=== PATIENT | female | born 2000 | race Caucasian/White ===

== ENCOUNTER 2023-09-29 12:14 | Outpatient (REF) | payer MEDICAID, SELFPAY ==
--- NOTE | ~2023-09-29 | US_ITS ---
EXAMINATION: US OBSTETRICAL ULTRASOUND CLINICAL INFORMATION: Known distal age. COMPARISON: None LMP: Unknown. Gestational age by maternal dates is unknown. Estimated date of delivery by maternal dates is unknown. TECHNIQUE: Routine transabdominal imaging of pelvis is performed. FINDINGS: There is a single intrauterine gestational sac with visible yolk sac, embryo/fetus, and cardiac activity. There is no significant subchorionic hemorrhage or hematoma. HR: 179 beats per minute. CRL (crown rump length): 3.1 cm (10 weeks 0 days +/- 4 days). CELSO (estimated date of delivery): 04/26/2024 +/- 4 days. MATERNAL ADNEXA: The right maternal ovary measures 1.7 x 2.6 x 2.0 cm. There is anechoic cyst measuring 1.7 x 1.3 x 1.4 cm The left maternal ovary measures 1.7 x 1.6 x 0.8. cm. And appears unremarkable. There is no significant maternal adnexal mass. No maternal pelvic ascites. US/US OB <= 14 weeks fetus IMPRESSION: 1. Single intrauterine gestation with ultrasound gestational age of 10 weeks 0 days +/- 4 days. 2. Estimated date of delivery is 04/26/2024 +/- 4 days. 3. No maternal adnexal mass or pelvic ascites.
== END 2023-09-29 12:15 | disposition home or self-care (01) ==
LOC: HO.US 12:14
PROVIDERS: Visit Provider Advanced Practice Midwife
DX: Z34.91 Encounter for supervision of normal pregnancy, unspecified, first trimester (principal); Z3A.10 10 weeks gestation of pregnancy
CPT/HCPCS: 76801